=== PATIENT | male | born 1945 | race Caucasian/White ===

== ENCOUNTER 2017-02-16 11:24 | Emergency (ER) | payer MEDICARE ==
--- NOTE | 2017-02-16 11:39 | ER Document Report ---
ED Medical Screen (RME) - General Chief Complaint: Fever Stated Complaint: FOOT PAIN Time Seen by Provider: 02/16/17 11:34 Mode of Arrival: Ambulatory Information source: Patient Notes: 71-year-old diabetic male with a 10 year chronic right plantar foot ulcer is complaining of increased redness, heat, and swelling to his foot and lower leg over the past week. His fever was 103 yesterday and is concerned that he will develop septicemia, cellulitis again. Treated with hospital inpatient IV antibiotics in [facility] in the past. TRAVEL OUTSIDE OF THE [place] IN LAST 30 DAYS: No - Related Data Allergies/Adverse Reactions: Penicillins Allergy (Verified 02/16/17 11:27) Past Medical History Renal/ Medical History: Denies: Hx Peritoneal Dialysis Physical Exam - Vital signs Vitals: Temp Pulse Resp BP Pulse Ox 98.1 F 85 16 141/75 H 95 02/16/17 11:27 02/16/17 11:27 02/16/17 11:27 02/16/17 11:27 02/16/17 11:27 Course - Vital Signs Vital signs: Temp Pulse Resp BP Pulse Ox 98.1 F 85 16 141/75 H 95 02/16/17 11:27 02/16/17 11:27 02/16/17 11:27 02/16/17 11:27 02/16/17 11:27
[2017-02-16 12:16] LABS: ABSOLUTE EOSINOPHILS # (AUTO) 0.1 10^3/uL (0.0-0.6); ABSOLUTE LYMPHOCYTES (AUTO) 0.4 10^3/uL (0.5-4.7); ABSOLUTE MONOCYTES (AUTO) 0.8 10^3/uL (0.1-1.4); BASOPHILS % (AUTO) 0.4 % (0-2); EOSINOPHILS % (AUTO) 0.9 % (0-6); HEMATOCRIT 45.6 % (37.9-51.0); HEMOGLOBIN 15.3 g/dL (13.5-17.0); HGB HCT DIFFERENCE 0.3; LYMPHOCYTES % (AUTO) 5.3 % (13-45); MEAN CORPUSCULAR HEMOGLOBIN 30.6 pg (27.0-33.4); MEAN CORPUSCULAR HGB CONC 33.6 g/dL (32.0-36.0); MEAN CORPUSCULAR VOLUME 91 fl (80-97); MONOCYTES % (AUTO) 10.6 % (3-13); SEGMENTED NEUTROPHILS % (AUTO) 82.8 % (42-78); WHITE BLOOD COUNT 7.2 10^3/uL (4.0-10.5)
[2017-02-16 12:40] LABS: ALANINE AMINOTRANSFERASE 28 U/L (21-72); ALBUMIN 4.3 g/dL (3.5-5.0); ALKALINE PHOSPHATASE 79 U/L (38-126); ANION GAP 14 (5-19); ASPARTATE AMINO TRANSFERASE 17 U/L (17-59); BILIRUBIN,DIRECT 0.4 mg/dL (0.0-0.4); BILIRUBIN,TOTAL 3.2 mg/dL (0.2-1.3); BLOOD UREA NITROGEN 15 mg/dL (7-20); CALCIUM 9.5 mg/dL (8.4-10.2); CARBON DIOXIDE 26 mmol/L (22-30); CHLORIDE 99 mmol/L (98-107); CREATININE RESULT 0.81 mg/dL (0.52-1.25); GLUCOSE 215 mg/dL (75-110); POTASSIUM 4.1 mmol/L (3.6-5.0); SODIUM 139.4 mmol/L (137-145); TOTAL PROTEIN 7.3 g/dL (6.3-8.2)
--- NOTE | 2017-02-16 15:28 | RADIOLOGY REPORT (SQ) ---
EXAM DESCRIPTION: FOOT RIGHT COMPLETE COMPLETED DATE/TIME: 02/16/2017 3:13 pm REASON FOR STUDY: infected dm ulcer COMPARISON: None. NUMBER OF VIEWS: Three views. TECHNIQUE: AP, lateral and oblique radiographic images acquired of the right foot. LIMITATIONS: None. FINDINGS: MINERALIZATION: Osteopenia. BONES: No acute fracture or dislocation. No worrisome bone lesions. JOINTS: No effusions. SOFT TISSUES: No soft tissue swelling. No foreign body. OTHER: No other significant finding. IMPRESSION: NO RADIOGRAPHIC EVIDENCE OF ACUTE INJURY. TECHNICAL DOCUMENTATION: JOB ID: [id number] [employer]- All Rights Reserved
[2017-02-16] MEDS ORDERED: CLINDAMYCIN HCL 150 MG CAPSULE PO ONE (15:37)
--- NOTE | 2017-02-16 15:43 | ER Document Report ---
ED Fever - General Chief Complaint: Fever Stated Complaint: FOOT PAIN Time Seen by Provider: 02/16/17 11:34 Mode of Arrival: Ambulatory Information source: Patient Notes: Patient is a 71-year-old diabetic patient who presents to the ER today with a chronic right foot ulcer on the bottom of his foot that has started to get red around it over the last 2 days. He admits to some fevers and chills over the last couple of days and does have a history of cellulitis to that foot which caused him to get septic and have to be admitted to hospital in [place] for IV antibiotics. This scared him enough to 10 minutes and as he thought the redness this time. TRAVEL OUTSIDE OF THE [place] IN LAST 30 DAYS: No - Related Data Allergies/Adverse Reactions: Penicillins Allergy (Verified 02/16/17 11:27) Past Medical History - General Information source: Patient - Social History Smoking Status: Never Smoker Chew tobacco use (# tins/day): No Frequency of alcohol use: None Drug Abuse: None Family History: Reviewed & Not Pertinent Patient has suicidal ideation: No Patient has homicidal ideation: No Renal/ Medical History: Denies: Hx Peritoneal Dialysis Review of Systems - Review of Systems Constitutional: See HPI EENT: No symptoms reported Cardiovascular: No symptoms reported Respiratory: No symptoms reported Gastrointestinal: No symptoms reported Genitourinary: No symptoms reported Male Genitourinary: No symptoms reported Musculoskeletal: No symptoms reported Skin: See HPI Hematologic/Lymphatic: No symptoms reported Neurological/Psychological: No symptoms reported Physical Exam - Vital signs Vitals: Temp Pulse Resp BP Pulse Ox 98.1 F 85 16 141/75 H 95 02/16/17 11:27 02/16/17 11:27 02/16/17 11:27 02/16/17 11:27 02/16/17 11:27 - Notes Notes: PHYSICAL EXAMINATION: GENERAL: Well-appearing and in no acute distress. HEAD: Atraumatic, normocephalic. EYES: Pupils equal round and reactive to light, extraocular movements intact, sclera anicteric, conjunctiva are normal. NECK: Normal range of motion, supple without lymphadenopathy LUNGS: CTAB and equal. No wheezes rales or rhonchi. HEART: Regular rate and rhythm without murmurs ABDOMEN: Soft, no tenderness. No guarding, no rebound EXTREMITIES: Normal range of motion, no pitting edema. No cyanosis. NEUROLOGICAL: Cranial nerves grossly intact. Normal sensory/motor exams. PSYCH: Normal mood, normal affect. SKIN: Warm, Dry, normal turgor, chronic ulcer noted to the plantar surface of the right foot with some discharge, over the ball of the foot, nontender to palpation, very mild erythema surrounding, mild erythema over dorsal/lateral right foot, nontender to palpation Course - Re-evaluation Re-evalutation: 02/16/17 15:40 X-ray negative for osteomyelitis, patient actually looks very well, afebrile, normal vital signs and would like to go home and not be admitted today. I will try him on outpatient antibiotics and he knows if any worsening symptoms to return immediately. He seems very compliant. - Vital Signs Vital signs: Temp Pulse Resp BP Pulse Ox 97.7 F 89 16 132/84 H 95 02/16/17 15:58 02/16/17 15:58 02/16/17 15:58 02/16/17 15:58 02/16/17 15:58 - Laboratory Result Diagrams: 02/16/17 12:00 02/16/17 12:00 Laboratory results interpreted by me: 02/16/17 02/16/17 12:00 12:00 Seg Neutrophils % 82.8 H Lymphocytes % 5.3 L Absolute Lymphocytes 0.4 L Glucose 215 H Total Bilirubin 3.2 H Discharge - Discharge Clinical Impression: Cellulitis of right foot Chronic ulcer of right foot Qualifiers: Non-pressure ulcer stage: unspecified non-pressure ulcer stage Qualified Code(s ): L97.519 - Non-pressure chronic ulcer of other part of right foot with unspecified severity Condition: Stable Disposition: HOME, SELF-CARE Additional Instructions: Return immediately for any new or worsening symptoms. Follow up with primary care provider, call tomorrow to make followup appointment. Prescriptions: Clindamycin HCl 300 mg PO TID #30 capsule
[2017-02-16 16:20] VITALS: BP 132/84
== END 2017-02-16 16:10 | disposition home or self-care (01) ==
LOC: ER 11:24
DX: E11.621 Type 2 diabetes mellitus with foot ulcer (principal); L97.519 Non-pressure chronic ulcer of other part of right foot with unspecified severity; L03.115 Cellulitis of right lower limb; R50.9 Fever, unspecified; Z88.0 Allergy status to penicillin
CPT/HCPCS: 99283; 36415; 87040; 85025; 80053; 73630; A9270